=== PATIENT | male | born 1985 | race Hispanic/Latino ===

== ENCOUNTER 2018-01-04 12:55 | Inpatient (IN) | payer BC ==
[2018-01-04 12:59] VITALS: BMI 34.9
[2018-01-04 14:08] LABS: BASO # 0.1 K/uL (0.0-0.2); BASO % 0.9 % (0.0-2.0); EOS # 0.3 K/uL (0.0-0.7); EOS % 4.2 % (0.0-4.0); HEMOGLOBIN 14.8 g/dL (12.0-18.0); LYMPH # 2.1 K/uL (1.0-4.3); LYMPH % 25.8 % (20.0-40.0); MEAN CELL VOLUME 89.4 fL (80.0-94.0); MEAN CORPUSCULAR HEMOGLOBIN 31.2 pg (27.0-31.0); MEAN CORPUSCULAR HGB CONC 34.9 g/dL (33.0-37.0); MEAN PLATELET VOLUME 7.8 fL (7.2-11.7); MONO # 0.4 K/uL (0.0-0.8); MONO % 5.4 % (0.0-10.0); NEUT # 5.1 K/uL (1.8-7.0); NEUT % 63.7 % (50.0-75.0); NRBC % 0.1 % (0.0-2.0); RBC 4.73 Mil/uL (4.40-5.90); RED CELL DISTRIBUTION WIDTH 12.4 % (11.5-14.5)
[2018-01-04 14:10] LABS: URINE BILIRUBIN NEGATIVE (NEGATIVE); URINE BLOOD NEGATIVE (NEGATIVE); URINE CLARITY Clear (Clear); URINE COLOR Straw (YELLOW); URINE GLUCOSE (UA) NORMAL (Normal); URINE LEUKOCYTE ESTERASE NEG Leu/uL (Negative); URINE PROTEIN NEGATIVE (NEGATIVE); URINE UROBILINOGEN NORMAL mg/dL (0.2-1.0)
[2018-01-04 14:31] LABS: ALB/GLOB RATIO 1.6 (1.0-2.1); ALBUMIN 4.6 g/dL (3.5-5.0); ALT/SGPT 40 U/L (21-72); AST/SGOT 32 U/L (17-59); BLOOD UREA NITROGEN 13 mg/dL (9-20); CALCIUM 9.6 mg/dl (8.6-10.4); GFR NON-AFRICAN AMERICAN > 60
[2018-01-04 14:36] LABS: BARBITURATES, UR NEGATIVE (NEGATIVE); BENZODIAZEPINES, UR NEGATIVE (NEGATIVE); OPIATES, UR NEGATIVE (NEGATIVE); PHENCYCLIDINE, UR NEGATIVE (NEGATIVE)
--- NOTE | 2018-01-04 15:30 | C.PDOC ---
History Of Present Illness 32-year-old male, PMHx includes anxiety and depression, presents to the emergency department with complaints of feeling increased depression and thoughts of hurting himself with no plan. Patient denies HI, hallucinations. States he is compliant with his Lexapro and Klonopin. Time Seen by Provider: 01/04/18 13:08 Chief Complaint (Nursing): Psychiatric Evaluation History Per: Patient History/Exam Limitations: no limitations Current Symptoms Are (Timing): Still Present Past Medical History Reviewed: Historical Data, Nursing Documentation, Vital Signs Vital Signs: Last Vital Signs Temp 98.6 F 01/04/18 17:31 Pulse 83 01/04/18 17:31 Resp 18 01/04/18 17:31 BP 127/76 01/04/18 17:31 Pulse Ox 97 01/04/18 17:31 - Medical History PMH: Depression Family History: States: No Known Family Hx - Social History Hx Alcohol Use: No Hx Substance Use: No - Immunization History Hx Tetanus Toxoid Vaccination: No Hx Influenza Vaccination: No Hx Pneumococcal Vaccination: No Review Of Systems Psych: Positive for: Anxiety, Depression, Suicidal ideation. Negative for: Psychosis Physical Exam - Physical Exam Appears: Non-toxic, No Acute Distress Skin: Normal Color, Warm, Dry, No Rash Head: Atraumatic, Normacephalic Eye(s): bilateral: Normal Inspection Nose: Normal Oral Mucosa: Moist Lips: Normal Appearing Neck: Normal ROM Chest: Symmetrical Cardiovascular: Rhythm Regular, No Murmur Respiratory: Normal Breath Sounds, No Decreased Breath Sounds, No Accessory Muscle Use Extremity: Normal ROM, No Deformity Neurological/Psych: Oriented x3, Normal Speech ED Course And Treatment - Laboratory Results Result Diagrams: 01/04/18 14:04 01/04/18 14:04 O2 Sat by Pulse Oximetry: 96 Pulse Ox Interpretation: Normal (RA) Disposition - Disposition Disposition: HOSPITALIZED Disposition Time: 14:40 Condition: STABLE - Clinical Impression Clinical Impression: MDD (major depressive disorder) - Scribe Statement The provider has reviewed the documentation as recorded by the Scribe (Elizabeth Bernard) Provider Attestation: All medical record entries made by the Scribe were at my direction and personally dictated by me. I have reviewed the chart and agree that the record accurately reflects my personal performance of the history, physical exam, medical decision making, and the department course for this patient. I have also personally directed, reviewed, and agree with the discharge instructions and disposition.
--- NOTE | 2018-01-04 17:55 | PCM.BM ---
<Estephanie Chen - Last Filed: 01/04/18 17:53> Treatment Plan Problems - Problems identified on initial assessmt depression Date Initiated: 01/04/18 Time Initiated: 17:53 Assessment reference: NA Status: Active suicidal ideation Date Initiated: 01/04/18 Time Initiated: 17:53 Assessment reference: NA Status: Monitor Treatment assets and liabiliti Patient Assests: cooperative, educated, insightful, self-reliant, ADL independent, physically healthy, good support system, cognitively intact - Milieu Protocol Maintain good personal hygiene: daily Encourage regular showers, daily Remind patient to perform daily oral care, daily Assist patient to perform ADL's Conduct patient checks and document Observation sheet: Q15 minutes Maintain personal safety: every shift Educate patient to report safety concerns to staff, every shift Monitor environment for contraband/sharps Medication safety: Monitor for expected outcome, potential side effects: every shift, Assess barriers to learning: every shift, Assess readiness for medication education: every shift <Jc Mondragon - Last Filed: 01/05/18 16:31> - Diagnosis (1) MDD (major depressive disorder) Status: Acute Interventions: 01/05/18 16:31 * Assess/adjust medications daily and /or as needed * See patient on an individual basis 7x/week to assess symptoms of depression * Monitor for side effects & effectiveness of medications * <Bindu Joshua - Last Filed: 01/07/18 10:33> Family Contact Family involvement: Family/SO is involved Family contact: Family has been contacted by patient - Goals for Treatment Patient goals for treatment: "I want to return to Dr. Palma Damon for treatment." Discharge/Continuing Care - Education Needs Education Needs: Patient Medication, Patient Diagnosis/Disease Process, Patient Coping Skills - Discharge Discharge Criteria: Free of Suicidal thoughts, Ability to care for self, Reduction of target symptoms Discharge to:: Home - Treatment Team Participation Discussed with Family/SO: No Was Patient/Family/SO present at Treatment Team Meeting: Yes
--- NOTE | 2018-01-05 10:25 | PCM.PSYCH ---
Initial Psychiatric Evaluation - Initial Psychiatric Evaluation Type of Admission: Voluntary Legal Status: Capacity Chief Complaint (in patient's own words): "I'm depressed" History of Present Illness and Precipitating Events: The patient is seen, chart reviewed and case discussed. This is a 32-year-old male, with 2 children aged 1 and 3. He is unemployed and lives with his family. This is his first admission in psychiatry and he brought himself after he felt suicidal. Currently he denies feeling suicidal and contracts for safety. However he does feel depressed which started years ago and recently he was diagnosed with major depression and put on Lexapro 10 mg and Klonopin 0.5 mg. He also suffers from anxiety as in excessive worrying. He has anhedonia, low self-esteem, and neurovegetative symptoms but no suicidal thoughts today. No pedro or psychosis elicited No drugs alcohol or cigarette use. He reports that he had an affair about a month ago and his found out and that escalated his depression. They now go to couples therapy and he also has an individual therapist. his was contacted and she reported to our bin worker that the patient had been depressed in the past and stopped going to school or work for weeks at times. Past psych history: First treatment, no previous david attempt Family psych history: Denies Medical history: Overweight Current Medications: Active Medications Generic Name Dose Route Start Last Admin Trade Name Freq PRN Reason Stop Dose Admin Escitalopram Oxalate 5 mg 01/05/18 10:00 01/05/18 09:51 Lexapro PO 5 mg DAILY CALISTA Administration Hydroxyzine HCl 25 mg 01/04/18 19:48 Atarax PO Q4H PRN Anxiety Mirtazapine 15 mg 01/04/18 22:00 01/04/18 21:29 Remeron PO 15 mg HS CALISTA Administration Pneumococcal Polyvalent Vaccine 0.5 ml 01/07/18 10:00 Pneumovax 23 Vaccine IM 01/07/18 10:01 .ONCE ONE Trazodone HCl 100 mg 01/04/18 19:48 01/04/18 22:03 Desyrel PO 100 mg HS PRN Administration Insomnia Past Psychiatric History - Past Psychiatric History Previous Treatment History: Intensive Outpatient Pertinent Medical Hx (Current Medical&Sleep Prob, Allergies): Allergies Allergy/AdvReac Type Severity Reaction Status Date / Time No Known Allergies Allergy Verified 01/04/18 13:08 Klonopin 01/04/18 Lexapro 01/04/18 Review of Systems - Psychiatric Psychiatric: Abnormal Sleep Pattern, Anhedonia, Anxiety, Change in Appetite, Depression, Difficulty Concentrating. absent: Hallucinations, Homicidal Ideation, Paranoia, Suicidal Ideation Mental Status Examination - Personal Presentation Personal Presentation: Looks stated age - Affect Affect: Constricted - Motor Activity Motor Activity: Calm - Reliability in Providing Information Reliability in Providing Information: Good - Speech Speech: Organized - Mood Mood: Depressed, Anxious - Formal Thought Process Formal Thought Process: No Impairment - Cognitive Functions Orientation: Person, Place, Situation, Time Sensorium: Alert Attention/Concentration: Attentive Estimate of Intelligence: Average Judgement: Intact, as evidence by: Insight regarding need for hospitalization Memory: Recent intact, as evidence by: Ability to recall events of the day, Remote intact, as evidenced by: Abilit to recall sig. life events - Risk Risk: Diminished functioning - Strength & Assets Inventory Strength & Assets Inventory: Family support, Employment history, Cooperative - Limitations Limitations: Other DSM 5 DX - DSM 5 DSM 5 Diagnosis: Major depressive disorder, recurrent, severe, without psychosis rule out LICHA - Recommended/Plan of Treatment Treatment Recommendations and Plan of Treatment: Lexapro for depression but increase the dose to 15 mg today and 20 tomorrow As need medications All risks, benefits and alternatives of the meds discussed, and the pt agreed and understood. Attend groups and activities Individual therapy daily Psychoeducation and support daily Encourage compliance with meds and after care Refer to outpatient program Teach healthy lifestyle methods, i.e. diet, exercise, meditation Smoking cessation and patch if needed 32 min Projected ELOS: 3 days
[2018-01-06 06:31] VITALS: RESP 20
--- NOTE | 2018-01-06 10:10 | PCM.PYCHPN ---
Mental Status Examination - Cognitive Function Orientation: Person, Place, Situation, Time - Mood Mood: Depressed, Anxious - Affect Affect: Constricted - Formal Thought Process Formal Thought Process: No Impairment - Homicidal Ideation Homicidal Ideation: No
[2018-01-07 06:08] VITALS: BP 125/74; PULSE 80; TEMP 97.6; O2SAT 98
--- NOTE | 2018-01-07 09:51 | PCM.PYCHDC ---
Mental Status Examination - Mental Status Examination Orientation: Person Discharge Summary - Discharge Note Consultations:: List each consultation separately and include: 1. Reason for request. 2. Findings. 3. Follow-up Summary of Hospital Course include:: 1. Description of specific treatment plan utilized for patients during their course of treatmen. 2. Summarize the time- course for resolution of acute symptoms and/or regressed behaviors. 3. Describe issues identified and worked on during hospitalization. 4. Describe medication utilized. 5. Describe medical problems identified and treated. 6. Reassessment of suicide risk Summary of Hospital Course: The patient is seen, chart reviewed and case discussed. This is a 32-year-old male, with 2 children aged 1 and 3. He is unemployed and lives with his family. This is his first admission in psychiatry and he brought himself after he felt suicidal. Currently he denies feeling suicidal and contracts for safety. However he does feel depressed which started years ago and recently he was diagnosed with major depression and put on Lexapro 10 mg and Klonopin 0.5 mg. He also suffers from anxiety as in excessive worrying. He has anhedonia, low self-esteem, and neurovegetative symptoms but no suicidal thoughts today. No pedro or psychosis elicited No drugs alcohol or cigarette use. He reports that he had an affair about a month ago and his found out and that escalated his depression. They now go to couples therapy and he also has an individual therapist. his was contacted and she reported to our sheetmetal trades worker that the patient had been depressed in the past and stopped going to school or work for weeks at times. Past psych history: First treatment, no previous david attempt Family psych history: Denies Medical history: Overweight Private psychiatrist - Diagnosis (1) MDD (major depressive disorder) Current Visit: Yes Status: Acute - Final Diagnosis (DSM 5) Condition upon Discharge: STABLE Disposition: HOME/ ROUTINE Follow-up Treatment Plan: Lexapro for depression but increase the dose to 15 mg today and 20 tomorrow As need medications All risks, benefits and alternatives of the meds discussed, and the pt agreed and understood. Attend groups and activities Individual therapy daily Psychoeducation and support daily Encourage compliance with meds and after care Refer to outpatient program Teach healthy lifestyle methods, i.e. diet, exercise, meditation Smoking cessation and patch if needed 32 min Prescriptions/Medication Reconciliation: Escitalopram [Lexapro] 20 mg PO DAILY #30 tab traZODone [Desyrel] 100 mg PO HS PRN #30 tab PRN Reason: Insomnia
[2018-01-07] MEDS ORDERED: Pneumococcal 23-Valent Vaccine IM ONE (10:00)
== END 2018-01-07 11:00 | disposition home or self-care (01) | DRG 885 ==
LOC: C.ER 12:55 → C.5E 17:05
PROVIDERS: ADMIT Psychiatry & Neurology Psychiatry; ATTEND Psychiatry & Neurology Psychiatry
PROC: GZ3ZZZZ Medication Management (ICD-10-PCS; principal; 2018-01-04)
PROC: GZHZZZZ Group Psychotherapy (ICD-10-PCS; 2018-01-04)
PROC: GZ56ZZZ Individual Psychotherapy, Supportive (ICD-10-PCS; 2018-01-04)
DX: F33.2 Major depressive disorder, recurrent severe without psychotic features (principal); F41.1 Generalized anxiety disorder